=== PATIENT | female | born 1990 | race Hispanic/Latino ===

== ENCOUNTER 2017-12-06 21:41 | Emergency (ER) | payer OTHER ==
[2017-12-06 23:00] LABS: Urine Blood NEGATIVE (NEG); Urine Glucose NEGATIVE (NEG); Urine Protein NEGATIVE (NEG); Urine Specific Gravity 1.015 (1.005-1.030)
--- NOTE | 2017-12-06 23:03 | EDPHYS ---
Physician Documentation [facility] Name: Jovana Johnson Age: 27 yrs Sex: Female : 1990 Arrival Date: 12/06/2017 Time: 21:46 Bed 6 Private MD: Moshe Lopes E ED Physician Alvin Singh HPI: 12/06 22:57 This 27 yrs old Female presents to ER via Ambulatory with complaints of ashley Dizziness, Numbness Of Hand, Numbness Of Arm. 22:57 This 27 yrs old Female presents to ER via Ambulatory with complaints of ashley Dizziness, Numbness Of Hand, Numbness Of Arm. 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 - Social history:: Smoking status: Patient/guardian denies using tobacco. - Ebola Screening: : Patient negative for fever greater than or equal to 101.5 degrees Fahrenheit, and additional compatible Ebola Virus Disease symptoms Patient denies exposure to infectious person Patient denies travel to an Ebola-affected area in the 21 days before illness onset No symptoms or risks identified at this time. - Family history:: not pertinent. ROS: 22:59 Constitutional: Negative for fever, chills, and weight loss, Eyes: Negative for injury, ashley pain, redness, and discharge, ENT: Negative for injury, pain, and discharge, Neck: Negative for injury, pain, and swelling, Cardiovascular: Negative for chest pain, palpitations, and edema, Respiratory: Negative for shortness of breath, cough, wheezing, and pleuritic chest pain, Abdomen/GI: Negative for abdominal pain, nausea, vomiting, diarrhea, and constipation, Back: Negative for injury and pain, : Negative for injury, bleeding, discharge, and swelling, MS/Extremity: Negative for injury and deformity, Skin: Negative for injury, rash, and discoloration, Psych: Negative for depression, anxiety, suicide ideation, homicidal ideation, and hallucinations, Allergy/Immunology: Negative for hives, rash, and allergies, Endocrine: Negative for neck swelling, polydipsia, polyuria, polyphagia, and marked weight changes, Hematologic/Lymphatic: Negative for swollen nodes, abnormal bleeding, and unusual bruising. 22:59 Neuro: Positive for numbness, near syncope, tingling. Exam: 22:59 Constitutional: This is a well developed, well nourished patient who is awake, alert, ashley and in no acute distress. Head/Face: Normocephalic, atraumatic. Eyes: Pupils equal round and reactive to light, extra-ocular motions intact. Lids and lashes normal. Conjunctiva and sclera are non-icteric and not injected. Cornea within normal limits. Periorbital areas with no swelling, redness, or edema. ENT: Nares patent. No nasal discharge, no septal abnormalities noted. Tympanic membranes are normal and external auditory canals are clear. Oropharynx with no redness, swelling, or masses, exudates, or evidence of obstruction, uvula midline. Mucous membranes moist. Neck: Trachea midline, no thyromegaly or masses palpated, and no cervical lymphadenopathy. Supple, full range of motion without nuchal rigidity, or vertebral point tenderness. No Meningismus. Chest/axilla: Normal chest wall appearance and motion. Nontender with no deformity. No lesions are appreciated. Cardiovascular: Regular rate and rhythm with a normal S1 and S2. No gallops, murmurs, or rubs. Normal PMI, no JVD. No pulse deficits. Respiratory: Lungs have equal breath sounds bilaterally, clear to auscultation and percussion. No rales, rhonchi or wheezes noted. No increased work of breathing, no retractions or nasal flaring. Abdomen/GI: Soft, non-tender, with normal bowel sounds. No distension or tympany. No guarding or rebound. No evidence of tenderness throughout. Back: No spinal tenderness. No costovertebral tenderness. Full range of motion. Female : Normal external genitalia. Skin: Warm, dry with normal turgor. Normal color with no rashes, no lesions, and no evidence of cellulitis. MS/ Extremity: Pulses equal, no cyanosis. Neurovascular intact. Full, normal range of motion. Neuro: Awake and alert, GCS 15, oriented to person, place, time, and situation. Cranial nerves II-XII grossly intact. Motor strength 5/5 in all extremities. Sensory grossly intact. Cerebellar exam normal. Normal gait. Psych: Awake, alert, with orientation to person, place and time. Behavior, mood, and affect are within normal limits. Vital Signs: 21:54 BP 123 / 89; Pulse 90; Resp 20; Temp 97.8; Pulse Ox 100% on R/A; Weight 68.04 kg; aj Height 4 ft. 11 in. (149.86 cm); 23:07 BP 105 / 61 Supine; Pulse 77; ao 23:09 BP 116 / 79 Sitting; Pulse 78; ao 23:14 BP 121 / 79 Standing; Pulse 75; Resp 16; Pulse Ox 100% ; Pain 0/10; ao 21:54 Body Mass Index 30.30 (68.04 kg, 149.86 cm) aj MDM: 22:36 Patient medically screened. [facility] 22:59 Data reviewed: vital signs, nurses notes, lab test result(s), EKG. [facility] 12/06 22:32 Order name: Urine Dipstick--Ancillary (enter results); Complete Time: 23:01 12/06 22:32 Order name: Urine --Ancillary (enter results); Complete Time: 23:01 12/06 22:32 Order name: Urine Dipstick-Ancillary (obtain specimen); Complete Time: 22:32 cc 12/06 22:32 Order name: Urine Test (obtain specimen); Complete Time: 22:32 cc 12/06 23:01 Order name: Orthostatics; Complete Time: 23:16 [facility] 12/06 23:01 Order name: EKG; Complete Time: 23:01 [facility] 12/06 23:01 Order name: EKG - Nurse/Tech; Complete Time: 23:43 [facility] 12/06 23:01 Order name: PO challenge; Complete Time: 23:16 [facility] Administered Medications: No medications were administered Disposition: 12/06/17 23:02 Discharged to Home. Impression: Dizziness and giddiness. - Condition is Stable. - Discharge Instructions: Dizziness, Dizziness, [id number]. - Medication Reconciliation Form, Thank You Letter, Antibiotic Education, Prescription Opioid Use form. - Follow up: Moshe Lopes MD; When: 2 - 3 days; Reason: Recheck today's complaints, Continuance of care, Re-evaluation by your physician. - Problem is new. - Symptoms have improved. Signatures: Dispatcher [employer] EDJulia Schulz, RN RN Alvin Rios MD MD cha Christian, Chelsea cc Ortiz, Alex, RAFAEL RN ao Corrections: (The following items were deleted from the chart) 12/07 00:06 12/06 23:02 12/06/2017 23:02 Discharged to Home. Impression: Dizziness and giddiness. ao Condition is Stable. Forms are Medication Reconciliation Form, Thank You Letter, Antibiotic Education, Prescription Opioid Use. Follow up: Moshe Lopes; When: 2 - 3 days; Reason: Recheck today's complaints, Continuance of care, Re-evaluation by your physician. Problem is new. Symptoms have improved. ashley
--- NOTE | 2017-12-06 23:03 | ER ---
Nurse's Notes [facility] Name: Jovana Johnson Age: 27 yrs Sex: Female : 1990 Arrival Date: 12/06/2017 Time: 21:46 Bed 6 Private MD: Moshe Lopes E Diagnosis: Dizziness and giddiness Presentation: 12/06 21:53 Presenting complaint: Patient states: Numbness to bilateral hands, legs, and face with aj lightheadedness that started today while patient was texting. Patient ambulated with steady gait to triage. Speech is clear. No facial droop noted. Patient drover herself to ER. Transition of care: patient was not received from another setting of care. Onset of symptoms was December 06, 2017. Risk Assessment: Do you want to hurt yourself or someone else? Patient reports no desire to harm self or others. Care prior to arrival: None. 21:53 Method Of Arrival: Ambulatory aj 21:53 Acuity: KEVIN 3 aj 23:15 Initial Sepsis Screen: Does the patient meet any 2 criteria? No. Patient's initial ao sepsis screen is negative. Does the patient have a suspected source of infection? No. Patient's initial sepsis screen is negative. Triage Assessment: 21:54 General: Appears in no apparent distress. comfortable, Behavior is calm, cooperative, aj appropriate for age. Pain: Denies pain. Neuro: Level of Consciousness is awake, alert, obeys commands, Oriented to person, place, time, situation, Appropriate for age Numbness in face, right arm, left arm, right leg and left leg. Respiratory: Airway is patent Respiratory effort is even, unlabored, Respiratory pattern is regular, symmetrical. Derm: Skin is intact, is healthy with good turgor, Skin is pink, warm \T\ dry. normal. 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 - Social history:: Smoking status: Patient/guardian denies using tobacco. - Ebola Screening: : Patient negative for fever greater than or equal to 101.5 degrees Fahrenheit, and additional compatible Ebola Virus Disease symptoms Patient denies exposure to infectious person Patient denies travel to an Ebola-affected area in the 21 days before illness onset No symptoms or risks identified at this time. - Family history:: not pertinent. Screenin:14 Abuse screen: Denies threats or abuse. Denies injuries from another. Nutritional ao screening: No deficits noted. Tuberculosis screening: No symptoms or risk factors identified. Fall Risk None identified. Assessment: 22:31 General: Appears in no apparent distress. comfortable, Behavior is calm, cooperative, ao appropriate for age. Pain: Denies pain. Pain: Complains of pain in Report headache for the past few days but. Neuro: Level of Consciousness is awake, alert, obeys commands, Oriented to person, place, time, situation, Appropriate for age Moves all extremities. Speech is normal, Facial symmetry appears normal. Cardiovascular: Capillary refill < 3 seconds Patient's skin is warm and dry. Respiratory: Airway is patent Respiratory effort is even, unlabored, Respiratory pattern is regular, symmetrical. GI: Abdomen is non-distended, Bowel sounds present X 4 quads. : No signs and/or symptoms were reported regarding the genitourinary system. EENT: No signs and/or symptoms were reported regarding the EENT system. Derm: Skin is intact, Skin temperature is warm. Musculoskeletal: Amputation of Range of motion: intact in all extremities. 23:07 Reassessment: Patient appears in no apparent distress at this time. Patient and/or ao family updated on plan of care and expected duration. Pain level reassessed. Patient is alert, oriented x 3, equal unlabored respirations, skin warm/dry/pink. Patient get an EKG and then discharge if no problems. Vital Signs: 21:54 BP 123 / 89; Pulse 90; Resp 20; Temp 97.8; Pulse Ox 100% on R/A; Weight 68.04 kg; aj Height 4 ft. 11 in. (149.86 cm); 23:07 BP 105 / 61 Supine; Pulse 77; ao 23:09 BP 116 / 79 Sitting; Pulse 78; ao 23:14 BP 121 / 79 Standing; Pulse 75; Resp 16; Pulse Ox 100% ; Pain 0/10; ao 21:54 Body Mass Index 30.30 (68.04 kg, 149.86 cm) ED Course: 21:46 Patient arrived in ED. es 21:46 Moshe Lopes MD is Private Physician. es 21:54 Triage completed. aj 21:54 Arm band placed on left wrist. Patient placed in waiting room, Patient notified of wait aj time. 22:21 Adriel Lo, RN is Primary Nurse. ao 22:36 Alvin Singh MD is Attending Physician. ashley 23:02 Moshe Lopes MD is Referral Physician. [facility] 23:15 Patient has correct armband on for positive identification. Pulse ox on. NIBP on. ao 12/07 00:05 No provider procedures requiring assistance completed. Patient did not have IV access ao during this emergency room visit. Administered Medications: No medications were administered Outcome: 12/06 23:02 Discharge ordered by . [facility] 12/07 00:06 Discharged to home ambulatory. ao Condition: stable Discharge instructions given to patient, Instructed on discharge instructions, follow up and referral plans. Demonstrated understanding of instructions, follow-up care, medications. 00:06 Patient left the ED. ao Signatures: Julia Alves RN RN aj Anderson, Corey, MD MD cha Salyer, Edna es Ortiz, Alex RN RN ao
[2017-12-07 00:36] VITALS: TEMP 97.8; O2SAT 100
[2017-12-07 00:39] VITALS: BP 121/79
--- NOTE | 2017-12-07 06:46 | EKG ---
Test Date: 2017-12-06 Test Time: 23:28:58 [employer] Tutor: JASON MEASUREMENT RESULTS: Intervals: Rate: 67 ME: 184 QRSD: 80 QT: 396 QTc: 418 Blevins: P: 41 ME: 184 QRS: 69 T: 28 INTERPRETIVE STATEMENTS: Normal sinus rhythm Normal ECG No previous ECG available for comparison Electronically Signed On 12-07-17 06:46:06 CDT by Theodore Dey
== END 2017-12-07 00:06 | disposition home or self-care (01) ==
LOC: ER 21:41
DX: R42 Dizziness and giddiness (principal); R20.0 Anesthesia of skin
CPT/HCPCS: 81003; 81025; 93005; 99283

== ENCOUNTER 2018-10-21 15:43 | Emergency (ER) | payer OTHER ==
--- NOTE | 2018-10-21 17:08 | RAD REPORT ---
EXAM DESCRIPTION: RAD - Chest Single View - 10/21/2018 4:51 pm CLINICAL HISTORY: Chest pain;SOB Chest pain. COMPARISON: No comparisons FINDINGS: Portable technique limits examination quality. The lungs are grossly clear. The heart is normal in size. No displaced fractures. IMPRESSION: No acute intrathoracic process suspected.
--- NOTE | 2018-10-21 17:10 | EKG ---
Test Date: 2018-10-21 Test Time: 15:53:46 [employer]: MARIA DEL CARMEN MEASUREMENT RESULTS: Intervals: Rate: 91 GA: 166 QRSD: 82 QT: 354 QTc: 435 Dickens: P: 49 GA: 166 QRS: 71 T: 25 INTERPRETIVE STATEMENTS: Normal sinus rhythm Normal ECG Compared to ECG 12/06/2017 23:28:58 No significant changes Electronically Signed On 10-21-18 17:08:51 CDT by Theodore Dey
[2018-10-21 17:23] LABS: Absolute Lymphocytes (CBC) 2.3 K/uL (0.7-4.9); Absolute Monocytes 0.8 K/uL (0.1-1.3); Absolute Neutrophil 8.6 K/uL (1.8-8.0); Basophils % 0.6 % (0-1.3); Eosinophils % 1.1 % (0-4.4); Hematocrit 31.7 % (36.0-45.0); Lymphocytes % 19.2 % (15.3-44.8); RBC Red Blood Cell Count 4.56 M/uL (3.86-4.86)
[2018-10-21 17:30] LABS: Protime INR 0.95
[2018-10-21 17:39] LABS: ALT/SGPT 46 U/L (12-78); AST/SGOT 25 U/L (15-37); Albumin 3.8 g/dL (3.4-5.0); Alkaline Phosphatase 93 U/L (45-117); BUN Blood Urea Nitrogen 15 mg/dL (7-18); Bicarbonate 27 mmol/L (21-32); Bilirubin Direct < 0.1 mg/dL (0-0.2); Bilirubin Total 0.2 mg/dL (0.2-1.0); Glucose Level 99 mg/dL (74-106); NT PRO-BNP 24 pg/mL (<125); Potassium 3.7 mmol/L (3.5-5.1); Protein, Total 7.8 g/dL (6.4-8.2); Sodium Level 141 mmol/L (136-145); Troponin (Emerg Dept Use Only) < 0.02 ng/mL (0.0-0.045)
[2018-10-21 18:14] LABS: Anisocytosis 1+; Blood Morphology Comment NOTED (NOT SEEN); Platelet Estimate ADEQ; Polychromasia SLIGHT; Urine White Blood Cell Casts OK
[2018-10-21 18:15] LABS: Stomatocytes 1+
[2018-10-21 18:45] LABS: Urine Blood NEGATIVE (NEG); Urine Glucose NEGATIVE (NEG); Urine Protein NEGATIVE (NEG)
--- NOTE | 2018-10-21 20:36 | EDPHYS ---
Physician Documentation [facility] Name: Jovana Johnson Age: 28 yrs Sex: Female : 1990 Arrival Date: 10/21/2018 Time: 15:46 Bed 15 Private MD: Moshe Lopes E ED Physician Alvin Singh HPI: 10/21 19:00 This 28 yrs old Female presents to ER via Ambulatory with complaints of Chest pm1 Pain, Shortness Of Breath. 19:00 The patient or guardian reports chest pain that is located primarily in the mid-sternal pm1 area. The pain does not radiate. Associated signs and symptoms: Pertinent positives: shortness of breath, Pertinent negatives: cough, nausea, vomiting. The chest pain is described as aching. Duration: The patient or guardian reports multiple episodes, that have now resolved. Modifying factors: The symptoms are alleviated by rest, the symptoms are aggravated by emotionally stressful situations, walking, Father of her child about two weeks ago. Severity of pain: in the emergency department the pain has improved. The patient has not experienced similar symptoms in the past. The patient has not recently seen a physician. 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 - Ebola Screening: : Patient negative for fever greater than or equal to 101.5 degrees Fahrenheit, and additional compatible Ebola Virus Disease symptoms. ROS: 19:00 Constitutional: Negative for fever, chills, and weight loss, Eyes: Negative for injury, pm1 pain, redness, and discharge, ENT: Negative for injury, pain, and discharge, Neck: Negative for injury, pain, and swelling. 19:00 Abdomen/GI: Negative for abdominal pain, nausea, vomiting, diarrhea, and constipation, Back: Negative for injury and pain, : Negative for injury, bleeding, discharge, and swelling, MS/Extremity: Negative for injury and deformity, Skin: Negative for injury, rash, and discoloration, Neuro: Negative for headache, weakness, numbness, tingling, and seizure. 19:00 Cardiovascular: Positive for chest pain, Negative for edema, orthopnea, palpitations. 19:00 Respiratory: Positive for shortness of breath, Negative for cough, sputum production, wheezing. Exam: 19:00 Constitutional: This is a well developed, well nourished patient who is awake, alert, pm1 and in no acute distress. Head/Face: Normocephalic, atraumatic. Eyes: Pupils equal round and reactive to light, extra-ocular motions intact. Lids and lashes normal. Conjunctiva and sclera are non-icteric and not injected. Cornea within normal limits. Periorbital areas with no swelling, redness, or edema. ENT: Nares patent. No nasal discharge, no septal abnormalities noted. Tympanic membranes are normal and external auditory canals are clear. Oropharynx with no redness, swelling, or masses, exudates, or evidence of obstruction, uvula midline. Mucous membranes moist. Neck: Trachea midline, no thyromegaly or masses palpated, and no cervical lymphadenopathy. Supple, full range of motion without nuchal rigidity, or vertebral point tenderness. No Meningismus. Chest/axilla: Normal chest wall appearance and motion. Nontender with no deformity. No lesions are appreciated. Cardiovascular: Regular rate and rhythm with a normal S1 and S2. No gallops, murmurs, or rubs. Normal PMI, no JVD. No pulse deficits. Respiratory: Lungs have equal breath sounds bilaterally, clear to auscultation and percussion. No rales, rhonchi or wheezes noted. No increased work of breathing, no retractions or nasal flaring. Abdomen/GI: Soft, non-tender, with normal bowel sounds. No distension or tympany. No guarding or rebound. No evidence of tenderness throughout. Back: No spinal tenderness. No costovertebral tenderness. Full range of motion. Skin: Warm, dry with normal turgor. Normal color with no rashes, no lesions, and no evidence of cellulitis. MS/ Extremity: Pulses equal, no cyanosis. Neurovascular intact. Full, normal range of motion. 19:00 Neuro: Orientation: is normal, Motor: is normal, moves all fours. Vital Signs: 15:49 BP 129 / 87; Pulse 102; Resp 20; Temp 98.2; Pulse Ox 98% ; Weight 72.57 kg; Height 4 sv ft. 11 in. (149.86 cm); Pain 2/10; 17:00 BP 103 / 68; Pulse 84; Resp 15; Pulse Ox 99% on R/A; Pain 2/10; rb1 18:00 BP 95 / 69; Pulse 86; Resp 15; Pulse Ox 99% ; rb1 18:55 BP 109 / 82; Pulse 96; Resp 23; Pulse Ox 98% on R/A; rb1 19:25 BP 112 / 67; Pulse 80; Resp 16; Pulse Ox 100% on R/A; jb4 20:35 BP 106 / 78; Pulse 81; Resp 16; Pulse Ox 100% on R/A; jb4 15:49 Body Mass Index 32.32 (72.57 kg, 149.86 cm) sv MDM: 16:23 Patient medically screened. pm1 20:30 Data reviewed: vital signs. Data interpreted: Pulse oximetry: on room air is 100 %. pm1 Interpretation: normal. Counseling: I had a detailed discussion with the patient and/or guardian regarding: the historical points, exam findings, and any diagnostic results supporting the discharge/admit diagnosis, lab results, radiology results, the need for outpatient follow up, to return to the emergency department if symptoms worsen or persist or if there are any questions or concerns that arise at home. 10/21 16:29 Order name: Basic Metabolic Panel; Complete Time: 17:46 pm1 10/21 16:29 Order name: CBC with Diff; Complete Time: 20:09 pm1 10/21 16:29 Order name: LFT's; Complete Time: 17:46 pm1 10/21 16:29 Order name: Magnesium; Complete Time: 17:46 pm1 10/21 16:29 Order name: NT PRO-BNP; Complete Time: 17:46 pm1 10/21 16:29 Order name: PT-INR; Complete Time: 17:32 pm1 10/21 15:50 Order name: EKG; Complete Time: 15:50 sv 10/21 15:50 Order name: EKG - Nurse/Tech; Complete Time: 15:54 sv 10/21 16:29 Order name: Troponin (emerg Dept Use Only); Complete Time: 17:46 pm1 10/21 16:29 Order name: XRAY Chest (1 view); Complete Time: 17:32 pm1 10/21 16:29 Order name: D-Dimer; Complete Time: 17:32 pm1 10/21 17:28 Order name: CBC Smear Scan; Complete Time: 20:09 EDMS 10/21 17:28 Order name: Urine Dipstick--Ancillary (enter results); Complete Time: 20:09 bd 10/21 17:28 Order name: Urine --Ancillary (enter results); Complete Time: 20:09 bd 10/21 16:29 Order name: Cardiac monitoring; Complete Time: 17:13 pm1 10/21 16:29 Order name: IV Saline Lock; Complete Time: 17:13 pm1 10/21 16:29 Order name: Labs collected and sent; Complete Time: 17:13 pm1 10/21 16:29 Order name: O2 Per Protocol; Complete Time: 17:13 pm1 10/21 16:29 Order name: O2 Sat Monitoring; Complete Time: 17:13 pm1 10/21 16:29 Order name: Urine Dipstick-Ancillary (obtain specimen); Complete Time: 17:54 pm1 10/21 16:29 Order name: Urine Test (obtain specimen); Complete Time: 17:54 pm1 Administered Medications: No medications were administered Disposition: 10/22 06:40 Co-signature as Attending Physician, Alvin Singh MD I agree with the assessment and ashley plan of care. Disposition: 10/21/18 20:35 Discharged to Home. Impression: Chest pain, unspecified. - Condition is Stable. - Discharge Instructions: Nonspecific Chest Pain, Stress and Stress Management. - Medication Reconciliation Form, Thank You Letter, Antibiotic Education, Prescription Opioid Use form. - Follow up: Emergency Department; When: As needed; Reason: Worsening of condition. Follow up: Private Physician; When: 2 - 3 days; Reason: Recheck today's complaints, Continuance of care, Re-evaluation by your physician. - Problem is new. - Symptoms have improved. Signatures: Dispatcher [employer] Jovana Mcmahon RN RN sv Anderson, Corey, MD MD cha Barber, Rebecca, Mendoza Herrmann RN, NP FOREST ECONOMICS PROFESSOR pm1 Osbaldo Moses RN RN jb4 Corrections: (The following items were deleted from the chart) 10/21 20:51 20:35 10/21/2018 20:35 Discharged to Home. Impression: Chest pain, unspecified. jb4 Condition is Stable. Forms are Medication Reconciliation Form, Thank You Letter, Antibiotic Education, Prescription Opioid Use. Follow up: Emergency Department; When: As needed; Reason: Worsening of condition. Follow up: Private Physician; When: 2 - 3 days; Reason: Recheck today's complaints, Continuance of care, Re-evaluation by your physician. Problem is new. Symptoms have improved. pm1
--- NOTE | 2018-10-21 20:36 | ER ---
Nurse's Notes [facility] Name: Jovana Johnsno Age: 28 yrs Sex: Female : 1990 Arrival Date: 10/21/2018 Time: 15:46 Bed 15 Private MD: Moshe Lopes E Diagnosis: Chest pain, unspecified Presentation: 10/21 15:47 Presenting complaint: Patient states: left sided chest pain and SOB x 2 weeks. Reports sv that she was ambulating more today, is intermittent and mostly when she is active. Transition of care: patient was not received from another setting of care. Onset of symptoms was October 07, 2018. Care prior to arrival: None. 15:47 Method Of Arrival: Ambulatory sv 15:47 Acuity: KEVIN 3 sv 16:10 Risk Assessment: Do you want to hurt yourself or someone else? Patient reports no rb1 desire to harm self or others. Initial Sepsis Screen: Does the patient meet any 2 criteria? No. Patient's initial sepsis screen is negative. Does the patient have a suspected source of infection? No. Patient's initial sepsis screen is negative. Triage Assessment: 15:47 General: Appears in no apparent distress. comfortable, well groomed, well developed, sv Behavior is calm, cooperative, appropriate for age. Pain: Complains of pain in anterior aspect of left upper chest and left breast Pain currently is 2 out of 10 on a pain scale. Neuro: Level of Consciousness is awake, alert, obeys commands, Oriented to person, place, time, situation, Gait is steady. Respiratory: Reports shortness of breath on exertion Respiratory effort is even, unlabored, Respiratory pattern is regular, symmetrical. 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 - Ebola Screening: : Patient negative for fever greater than or equal to 101.5 degrees Fahrenheit, and additional compatible Ebola Virus Disease symptoms. Screenin:10 Abuse screen: Denies threats or abuse. Nutritional screening: No deficits noted. rb1 Tuberculosis screening: No symptoms or risk factors identified. Fall Risk None identified. Assessment: 16:10 General: Appears in no apparent distress. comfortable, Behavior is calm, cooperative, rb1 Denies fever. Pain: Complains of pain in chest Pain does not radiate. Pain currently is 10 out of 10 on a pain scale. Pain began a couple of weeks ago. Neuro: Level of Consciousness is awake, alert, obeys commands, Oriented to person, place, time, situation. Cardiovascular: Capillary refill < 3 seconds is brisk in bilateral fingers Rhythm is regular. Respiratory: Reports shortness of breath on exertion Airway is patent Respiratory effort is even, unlabored, Respiratory pattern is regular, symmetrical. GI: No signs and/or symptoms were reported involving the gastrointestinal system. : No signs and/or symptoms were reported regarding the genitourinary system. Derm: Skin is dry, Skin is normal, Skin temperature is warm. Musculoskeletal: Range of motion: intact in all extremities. 17:00 Reassessment: Patient appears in no apparent distress at this time. No changes from rb1 previously documented assessment. 18:00 Reassessment: Patient appears in no apparent distress at this time. Patient and/or rb1 family updated on plan of care and expected duration. Pain level reassessed. Patient is alert, oriented x 3, equal unlabored respirations, skin warm/dry/pink. 18:45 Reassessment: Pt. ambulated to the restroom. rb1 19:05 Reassessment: Patient appears in no apparent distress at this time. Patient and/or jb4 family updated on plan of care and expected duration. Pain level reassessed. Patient is alert, oriented x 3, equal unlabored respirations, skin warm/dry/pink. 19:20 Reassessment: Patient appears in no apparent distress at this time. Patient and/or jb4 family updated on plan of care and expected duration. Pain level reassessed. Patient is alert, oriented x 3, equal unlabored respirations, skin warm/dry/pink. Pt removed heart monitor due to itching, refuses to keep it on. 20:49 Reassessment: Patient appears in no apparent distress at this time. Patient and/or jb4 family updated on plan of care and expected duration. Pain level reassessed. Patient is alert, oriented x 3, equal unlabored respirations, skin warm/dry/pink. PT Left ED ambulatory with a steady gate. IV discontinued, bleeding controlled, bandaged applied. Vital Signs: 15:49 BP 129 / 87; Pulse 102; Resp 20; Temp 98.2; Pulse Ox 98% ; Weight 72.57 kg; Height 4 sv ft. 11 in. (149.86 cm); Pain 2/10; 17:00 BP 103 / 68; Pulse 84; Resp 15; Pulse Ox 99% on R/A; Pain 2/10; rb1 18:00 BP 95 / 69; Pulse 86; Resp 15; Pulse Ox 99% ; rb1 18:55 BP 109 / 82; Pulse 96; Resp 23; Pulse Ox 98% on R/A; rb1 19:25 BP 112 / 67; Pulse 80; Resp 16; Pulse Ox 100% on R/A; jb4 20:35 BP 106 / 78; Pulse 81; Resp 16; Pulse Ox 100% on R/A; jb4 15:49 Body Mass Index 32.32 (72.57 kg, 149.86 cm) sv ED Course: 15:46 Patient arrived in ED. mr 15:47 Moshe Lopes MD is Private Physician. mr 15:48 Triage completed. sv 15:49 Arm band placed on. sv 16:09 EKG done, by health information systems technician. reviewed by Alvin Singh MD. sm3 16:10 Patient has correct armband on for positive identification. Placed in gown. Bed in low rb1 position. Call light in reach. Side rails up X 1. monitor tech on. Pulse ox on. NIBP on. Warm blanket given. 16:10 Patient maintains SpO2 saturation greater than 95% on room air. rb1 16:22 Mendoza Rivas NP is PHCP. pm1 16:22 Alvin Singh MD is Attending Physician. pm1 16:51 XRAY Chest (1 view) In Process Unspecified. EDMS 16:57 Mouna Vu, RN is Primary Nurse. rb1 17:00 Inserted saline lock: 22 gauge in left antecubital area, using aseptic technique. Blood rb1 collected. 18:56 Report given to RAFAEL Childers. rb1 20:49 No provider procedures requiring assistance completed. IV discontinued, intact, jb4 bleeding controlled. Administered Medications: No medications were administered Output: 18:45 Urine: 1ml (Voided); Total: 1ml. rb1 Outcome: 20:35 Discharge ordered by . pm1 20:49 Discharged to home ambulatory. jb4 20:49 Condition: stable 20:49 Discharge instructions given to patient, Instructed on discharge instructions, follow up and referral plans. Demonstrated understanding of instructions, follow-up care. 20:51 Patient left the ED. jb4 Signatures: Dispatcher [employer] Jovana Mcmahon, RN Allie Hsu mr VuMouna, RN RN rb1 Mendoza Rivas, ULTRASONIC TESTER ULTRASONIC TESTER pm1 Osbaldo Moses RN RN jb4 Mary Jalloh 3
[2018-10-21 21:07] VITALS: TEMP 98.2
[2018-10-21 21:12] VITALS: BP 112/67; O2SAT 100
== END 2018-10-21 20:51 | disposition home or self-care (01) ==
LOC: ER 15:43
DX: R07.9 Chest pain, unspecified (principal)
CPT/HCPCS: 36415; 71045; 80048; 80076; 81003; 81025; 83735; 83880; 84484; 85025; 85379; 85610; 93005; 99285

== ENCOUNTER 2020-10-24 12:14 | Emergency (ER) | payer OTHER ==
--- OUTSIDE RECORDS SUMMARY | 2020-10-24 12:17 | XMS REPORT | Continuity of Care Document ---
:1990 Author Organization [facility] t Address [address] [place] [address] Care Team Providers Name Role Phone Lab, Juan A Pob I Attending Clinician Unavailable Problems This patient has no known problems. Allergies, Adverse Reactions, Alerts This patient has no known allergies or adverse reactions. Medications This patient has no known medications. Procedures This patient has no known procedures. Encounters Start End Encounter Admission Attending Care Care Encounter Source Date/Time Date/Time Type Type Clinicians Facility Department ID 2020-02-01 2020-02-01 Laboratory Lab, [facility] [id number] 10:34:05 10:54:05 Only Fam Pob I [facility] [id number] [place] [id number] [place] [id number] [address] Results This patient has no known results.
[2020-10-24 17:27] LABS: Absolute Lymphocytes (CBC) 1.5 K/uL (0.7-4.9); Basophils % 0.4 % (0-1.3); Hematocrit 41.2 % (36.0-45.0); Lymphocytes % 11.8 % (15.3-44.8); RBC Red Blood Cell Count 4.98 M/uL (3.86-4.86)
[2020-10-24 17:35] LABS: Protime INR 1.08
[2020-10-24 17:39] LABS: Urine Blood 1+ (Negative); Urine Glucose Negative (Negative); Urine Protein Negative (Negative); Urine Specific Gravity 1.025 (1.005-1.030); Urine pH 5.5 (5.0-7.0)
[2020-10-24 17:45] LABS: ALT/SGPT 45 U/L (12-78); AST/SGOT 16 U/L (15-37); Albumin 4.3 g/dL (3.4-5.0); Alkaline Phosphatase 129 U/L (45-117); BUN Blood Urea Nitrogen 13 mg/dL (7-18); Bicarbonate 23 mmol/L (21-32); Bilirubin Direct 0.1 mg/dL (0-0.2); Bilirubin Total 0.4 mg/dL (0.2-1.0); Glucose Level 153 mg/dL (74-106); Magnesium 2.1 mg/dL (1.8-2.4); NT PRO-BNP 9 pg/mL (<125); Potassium 3.6 mmol/L (3.5-5.1); Protein, Total 8.4 g/dL (6.4-8.2); Sodium Level 138 mmol/L (136-145); Troponin (Emerg Dept Use Only) < 0.02 ng/mL (0.0-0.045)
[2020-10-24 18:05] LABS: Urine Specific Gravity/Preg 1.025 (1.005-1.030)
--- NOTE | 2020-10-24 18:38 | RAD REPORT ---
EXAM DESCRIPTION: April Single View10/24/2020 6:29 pm CLINICAL HISTORY: Chest pain COMPARISON: 2018 FINDINGS: The lungs appear clear of acute infiltrate. The heart is normal size IMPRESSION: No acute abnormalities displayed
--- NOTE | 2020-10-24 19:09 | ER ---
Nurse's Notes [facility] Name: Jovana Johnson Age: 30 yrs Sex: Female : 1990 Arrival Date: 10/24/2020 Time: 12:19 Bed 24 Private MD: Diagnosis: Chest pain, unspecified;Headache Presentation: 10/24 12:22 Chief complaint: Patient states: Mid chest sharp pain off/on since . SOB and L ll1 arm numbness for 2 days. Sent in for eval by Dr. Lopes. On steroids for hives. Coronavirus screen: Client denies travel out of the [place] in the last 14 days. difficulty breathing, shortness of breath, Client presents with at least one sign or symptom that may indicate coronavirus-19. Standard/surgical mask placed on the client. Ebola Screen: Patient denies travel to an Ebola-affected area in the 21 days before illness onset. Initial Sepsis Screen: Does the patient meet any 2 criteria? HR > 90 bpm. No. Patient's initial sepsis screen is negative. Does the patient have a suspected source of infection? No. Patient's initial sepsis screen is negative. Risk Assessment: Do you want to hurt yourself or someone else? Patient reports no desire to harm self or others. Onset of symptoms was October 20, 2020. 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 - Social history:: Smoking status: Patient denies any tobacco usage or history of. Screenin:10 Abuse screen: Denies threats or abuse. Denies injuries from another. Nutritional ca1 screening: No deficits noted. Tuberculosis screening: No symptoms or risk factors identified. Fall Risk IV access (20 points). Assessment: 17:10 General: Appears in no apparent distress. comfortable, Behavior is calm, cooperative, ca1 appropriate for age. Pain: Complains of pain in chest Pain radiates to left arm Pain currently is 0 out of 10 on a pain scale. at worst was 10 out of 10 on a pain scale. Quality of pain is described as pressure, sharp, numb, Pain began a week ago Is intermittent. Neuro: Level of Consciousness is awake, alert, obeys commands, Oriented to person, place, time, situation. Neuro: Reports headache. Cardiovascular: Heart tones S1 S2 present Capillary refill < 3 seconds Patient's skin is warm and dry. Rhythm is sinus tachycardia. Respiratory: Airway is patent Respiratory effort is even, unlabored, Respiratory pattern is regular, symmetrical, Breath sounds are clear bilaterally. GI: Abdomen is round non-distended, Bowel sounds present X 4 quads. Abd is soft and non tender X 4 quads. Reports nausea. : No signs and/or symptoms were reported regarding the genitourinary system. EENT: No signs and/or symptoms were reported regarding the EENT system. Derm: Skin is intact, is healthy with good turgor, Skin is pink, warm \T\ dry. Musculoskeletal: Circulation, motion, and sensation intact. Capillary refill < 3 seconds. 18:14 Reassessment: Patient appears in no apparent distress at this time. Patient and/or ca1 family updated on plan of care and expected duration. Pain level reassessed. Patient is alert, oriented x 3, equal unlabored respirations, skin warm/dry/pink. 19:04 Reassessment: Patient appears in no apparent distress at this time. Patient and/or ca1 family updated on plan of care and expected duration. Pain level reassessed. Patient is alert, oriented x 3, equal unlabored respirations, skin warm/dry/pink. 19:30 Reassessment: Patient is alert, oriented x 3, equal unlabored respirations, skin bb warm/dry/pink. pt is crying states she has had a migraine all day the pain is 10/10 Mendoza Rivas POLICE SERGEANT notified new orders received, pt medicated see MAR pt awaiting CT scan. IV site intact, patent, fluids infusing, no erythema or edema noted. 20:51 Reassessment: Patient is alert, oriented x 3, equal unlabored respirations, skin bb warm/dry/pink. pt states she is feeling better now pt verbalized understanding of and agrees to plan of care discharge instructions given pt ambulated with steady gait to exit. Vital Signs: 12:22 BP 141 / 86; Pulse 122; Resp 17; Temp 99.0; Pulse Ox 98% ; Weight 75.75 kg; Height 4 ll1 ft. 11 in. (149.86 cm); Pain 3/10; 17:27 BP 126 / 89; Pulse 102; Resp 19 S; Pulse Ox 97% on R/A; ca1 18:14 BP 121 / 81; Pulse 108; Resp 20 S; Pulse Ox 100% on R/A; ca1 19:04 BP 123 / 87; Pulse 105; Resp 20 S; Pulse Ox 97% on R/A; ca1 19:54 BP 123 / 87; Pulse 97; Resp 20 S; Pulse Ox 100% on R/A; Pain 10/10; bb 20:52 BP 130 / 72; Pulse 101; Resp 16 S; Pulse Ox 100% on R/A; Pain 2/10; bb 12:22 Body Mass Index 33.73 (75.75 kg, 149.86 cm) ll1 ED Course: 12:19 Patient arrived in ED. mr 12:24 Triage completed. ll1 12:25 Arm band placed on. EKG completed in triage. Results shown to MD. ll1 12:36 EKG done, by ED staff, reviewed by Florian Harp MD. mh5 12:37 Patient has correct armband on for positive identification. mh5 16:58 Justyna Stewart, RAFAEL is Primary Nurse. ca1 16:59 Mendoza Rivas NP is PHCP. pm1 16:59 Florian Harp MD is Attending Physician. pm1 17:10 threat monitoring analyst on. Pulse ox on. NIBP on. Warm blanket given. ca1 17:10 No provider procedures requiring assistance completed. Initial lab(s) drawn, by tn, ca1 sent to lab. Inserted saline lock: 20 gauge in right antecubital area, using aseptic technique. Blood collected. Patient maintains SpO2 saturation greater than 95% on room air. 17:38 Urine collected: clean catch specimen, clear, mario alberto colored. jp3 18:29 XRAY Chest (1 view) In Process Unspecified. EDMS 21:07 IV discontinued, intact, bleeding controlled, No redness/swelling at site. Pressure bb dressing applied. Administered Medications: 19:16 Drug: NS 0.9% 1000 ml Route: IV; Rate: 1 bolus; Site: right antecubital; ca1 20:54 Follow up: IV Status: Completed infusion; IV Intake: 900ml bb 19:20 Drug: Tylenol 1000 mg Route: PO; ca1 20:35 Follow up: Response: No adverse reaction bb 19:54 Drug: Reglan (metoCLOPramide) 10 mg Route: IVP; Site: right antecubital; bb 20:53 Follow up: Response: No adverse reaction bb 20:54 Follow up: Response: No adverse reaction bb 19:54 Drug: TORadol (ketorolac) 30 mg Route: IVP; Site: right antecubital; bb 20:54 Follow up: Response: No adverse reaction bb 19:55 Drug: Benadryl (diphenhydrAMINE) 25 mg Route: IVP; Site: right antecubital; bb 20:54 Follow up: Response: No adverse reaction bb Point of Care Testing: Urine : 17:38 hCG Reading: Negative; Control Reading: Positive; jp3 Intake: 20:54 IV: 900ml; Total: 900ml. bb Outcome: 19:08 Discharge ordered by MD. pm1 20:37 Discharge ordered by MD. pm1 21:07 Discharged to home ambulatory. bb 21:07 Condition: stable 21:07 Discharge instructions given to patient, Instructed on discharge instructions, follow up and referral plans. no driving heavy equipment, medication usage, Demonstrated understanding of instructions, follow-up care, medications, Prescriptions given X 1. 21:08 Patient left the ED. bb Signatures: Dispatcher [employer] ARVIND QuirosAllie BayronFiona RN RN bb Mendoza Rivas, SHAY POLICE SERGEANT pm1 Umu Josue Jacob 3 Justyna Stewart RN RN ca1 Ingrid Armas RN RN ll1 Corrections: (The following items were deleted from the chart) 18:15 18:14 BP 117 / 65; Pulse 92bpm; Resp 26bpm; Spontaneous; Pulse Ox 100% RA; ca1 ca1 18:16 18:14 Pulse 108bpm; Resp 20bpm; Spontaneous; Pulse Ox 100% RA; ca1 ca1
--- NOTE | 2020-10-24 19:09 | EDPHYS ---
Physician Documentation [facility] Name: Jovana Johnson Age: 30 yrs Sex: Female : 1990 Arrival Date: 10/24/2020 Time: 12:19 Bed 24 Private MD: ED Physician Florian Harp HPI: 10/24 17:26 This 30 yrs old Female presents to ER via Ambulatory with complaints of Chest pm1 Pain, Numbness Of Arm. 17:26 The patient or guardian reports chest pain that is located primarily in the mid-sternal pm1 area. The pain radiates to the left arm. Associated signs and symptoms: Pertinent positives: shortness of breath, numbness left arm. The chest pain is described as aching. Modifying factors: The symptoms are alleviated by nothing. the symptoms are aggravated by emotionally stressful situations. Severity of pain: in the emergency department the pain is unchanged. The patient has experienced a previous episode, approximately 2 years ago, with of her child's father, October 2018. The patient has been recently seen by a physician: the patient's primary care provider, with similar presenting complaints, and was sent to the [facility] Emergency Department for further evaluation. SHANK TAPER: 18:14 LMP N/A - Depo-provera ca1 Historical: - Allergies: 12:25 No Known Allergies; ll1 - PMHx: 12:25 ADD/ADHD; ll1 - PSHx: 12:25 None; ll1 - Immunization history:: Flu vaccine is up to date. - Social history:: Smoking status: Patient denies any tobacco usage or history of. ROS: 17:26 Constitutional: Negative for fever, chills, and weight loss. pm1 17:26 Abdomen/GI: Negative for abdominal pain, nausea, vomiting, diarrhea, and constipation, Back: Negative for injury and pain, MS/Extremity: Negative for injury and deformity, Skin: Negative for injury, rash, and discoloration, Neuro: Negative for headache, weakness, numbness, tingling, and seizure. 17:26 Cardiovascular: Positive for chest pain, Negative for edema, palpitations. 17:26 Respiratory: Positive for shortness of breath, Negative for cough, sputum production, wheezing. Exam: 17:26 Constitutional: This is a well developed, well nourished patient who is awake, alert, pm1 and in no acute distress. Head/Face: Normocephalic, atraumatic. Chest/axilla: Normal chest wall appearance and motion. Nontender with no deformity. No lesions are appreciated. 17:26 Respiratory: Lungs have equal breath sounds bilaterally, clear to auscultation and percussion. No rales, rhonchi or wheezes noted. No increased work of breathing, no retractions or nasal flaring. Abdomen/GI: Soft, non-tender, with normal bowel sounds. No distension or tympany. No guarding or rebound. No evidence of tenderness throughout. Back: No spinal tenderness. No costovertebral tenderness. Full range of motion. Skin: Warm, dry with normal turgor. Normal color with no rashes, no lesions, and no evidence of cellulitis. MS/ Extremity: Pulses equal, no cyanosis. Neurovascular intact. Full, normal range of motion. 17:26 Cardiovascular: Rate: tachycardic, Rhythm: regular, Pulses: no pulse deficits are appreciated. 17:26 Neuro: Exam negative for Orientation: is normal, Mentation: is normal, Motor: is normal, moves all fours. Vital Signs: 12:22 BP 141 / 86; Pulse 122; Resp 17; Temp 99.0; Pulse Ox 98% ; Weight 75.75 kg; Height 4 ll1 ft. 11 in. (149.86 cm); Pain 3/10; 17:27 BP 126 / 89; Pulse 102; Resp 19 S; Pulse Ox 97% on R/A; ca1 18:14 BP 121 / 81; Pulse 108; Resp 20 S; Pulse Ox 100% on R/A; ca1 19:04 BP 123 / 87; Pulse 105; Resp 20 S; Pulse Ox 97% on R/A; ca1 19:54 BP 123 / 87; Pulse 97; Resp 20 S; Pulse Ox 100% on R/A; Pain 10/10; bb 20:52 BP 130 / 72; Pulse 101; Resp 16 S; Pulse Ox 100% on R/A; Pain 2/10; bb 12:22 Body Mass Index 33.73 (75.75 kg, 149.86 cm) ll1 MDM: 17:05 Patient medically screened. pm1 19:08 Data reviewed: vital signs. Data interpreted: Pulse oximetry: on room air is 97 %. pm1 Interpretation: normal. Counseling: I had a detailed discussion with the patient and/or guardian regarding: the historical points, exam findings, and any diagnostic results supporting the discharge/admit diagnosis, lab results, radiology results, the need for outpatient follow up, to return to the emergency department if symptoms worsen or persist or if there are any questions or concerns that arise at home. 20:36 Counseling: I had a detailed discussion with the patient and/or guardian regarding: the pm1 historical points, exam findings, and any diagnostic results supporting the discharge/admit diagnosis, lab results, the need for outpatient follow up, to return to the emergency department if symptoms worsen or persist or if there are any questions or concerns that arise at home. 10/24 17:00 Order name: Basic Metabolic Panel; Complete Time: 19:05 pm1 10/24 17:00 Order name: CBC with Diff; Complete Time: 19:05 pm1 10/24 17:00 Order name: LFT's; Complete Time: 19:05 pm1 10/24 17:00 Order name: Magnesium; Complete Time: 19:05 pm1 10/24 17:00 Order name: NT PRO-BNP; Complete Time: 19:05 pm1 10/24 17:00 Order name: PT-INR; Complete Time: 19:05 pm1 10/24 17:00 Order name: Troponin (emerg Dept Use Only); Complete Time: 19:05 pm1 10/24 17:00 Order name: XRAY Chest (1 view); Complete Time: 19:05 pm1 10/24 17:39 Order name: Urine Dipstick-Ancillary EDMO 10/24 17:39 Order name: Urine Dipstick-Ancillary; Complete Time: 17:39 EDMO 10/24 17:43 Order name: Urine --Ancillary (enter results); Complete Time: 19:05 bd 10/24 19:10 Order name: D-Dimer; Complete Time: 20:36 ca1 10/24 12:27 Order name: EKG; Complete Time: 12:27 ll1 10/24 17:00 Order name: Cardiac monitoring; Complete Time: 17:26 pm1 10/24 17:00 Order name: EKG - Nurse/Tech; Complete Time: 17:07 pm1 10/24 17:00 Order name: IV Saline Lock; Complete Time: 17:26 pm1 10/24 17:00 Order name: Labs collected and sent; Complete Time: 17:26 pm1 10/24 17:00 Order name: O2 Per Protocol; Complete Time: 17: pm1 10/24 17:00 Order name: O2 Sat Monitoring; Complete Time: 17:26 pm1 10/24 17:00 Order name: Urine Dipstick-Ancillary (obtain specimen); Complete Time: 17:38 pm1 10/24 17:00 Order name: Urine Test (obtain specimen); Complete Time: 17:38 pm1 Administered Medications: 19:16 Drug: NS 0.9% 1000 ml Route: IV; Rate: 1 bolus; Site: right antecubital; ca1 20:54 Follow up: IV Status: Completed infusion; IV Intake: 900ml bb 19:20 Drug: Tylenol 1000 mg Route: PO; ca1 20:35 Follow up: Response: No adverse reaction bb 19:54 Drug: Reglan (metoCLOPramide) 10 mg Route: IVP; Site: right antecubital; bb 20:53 Follow up: Response: No adverse reaction bb 20:54 Follow up: Response: No adverse reaction bb 19:54 Drug: TORadol (ketorolac) 30 mg Route: IVP; Site: right antecubital; bb 20:54 Follow up: Response: No adverse reaction bb 19:55 Drug: Benadryl (diphenhydrAMINE) 25 mg Route: IVP; Site: right antecubital; bb 20:54 Follow up: Response: No adverse reaction bb Point of Care Testing: Urine : 17:38 hCG Reading: Negative; Control Reading: Positive; jp3 Disposition: 10/24/20 20:37 Discharged to Home. Impression: Chest pain, unspecified, Headache. - Condition is Stable. - Discharge Instructions: Nonspecific Chest Pain, General Headache Without Cause. - Prescriptions for Fiorinal 50- 325-40 mg Oral Capsule - take 1 capsule by ORAL route every 4 hours As needed - not to exceed 6 capsules per day; 20 capsule. - Medication Reconciliation Form, Thank You Letter, Antibiotic Education, Prescription Opioid Use form. - Follow up: Emergency Department; When: As needed; Reason: Worsening of condition. Follow up: Private Physician; When: 2 - 3 days; Reason: Recheck today's complaints, Continuance of care, Re-evaluation by your physician. - Problem is new. - Symptoms have improved. Addendum: 10/26/2020 10:06 Co-signature as Attending Physician, Florian Harp MD I agree with the assessment and t w4 plan of care. Signatures: Dispatcher [employer] EDMS Fiona Verma RN RN bb Evelyn, Mendoza, DIE CAST TECHNICIAN DIE CAST TECHNICIAN pm1 Florian Harp MD MD tw4 Justyna Stewart RN RN ca1 Ingrid Armas RN RN ll1 Corrections: (The following items were deleted from the chart) 10/24 19:09 19:08 10/24/2020 19:08 Discharged to Home. Impression: Chest pain, unspecified. pm1 Condition is Stable. Forms are Medication Reconciliation Form, Thank You Letter, Antibiotic Education, Prescription Opioid Use. Follow up: Emergency Department; When: As needed; Reason: Worsening of condition. Follow up: Private Physician; When: 2 - 3 days; Reason: Recheck today's complaints, Continuance of care, Re-evaluation by your physician. Problem is new. Symptoms have improved. pm1 20:39 20:37 10/24/2020 20:37 Discharged to Home. Impression: Chest pain, unspecified. pm1 Condition is Stable. Forms are Medication Reconciliation Form, Thank You Letter, Antibiotic Education, Prescription Opioid Use. Follow up: Emergency Department; When: As needed; Reason: Worsening of condition. Follow up: Private Physician; When: 2 - 3 days; Reason: Recheck today's complaints, Continuance of care, Re-evaluation by your physician. Problem is new. Symptoms have improved. pm1 21:08 20:39 10/24/2020 20:37 Discharged to Home. Impression: Chest pain, unspecified; bb Headache. Condition is Stable. Discharge Instructions: Nonspecific Chest Pain, General Headache Without Cause. Forms are Medication Reconciliation Form, Thank You Letter, Antibiotic Education, Prescription Opioid Use. Follow up: Emergency Department; When: As needed; Reason: Worsening of condition. Follow up: Private Physician; When: 2 - 3 days; Reason: Recheck today's complaints, Continuance of care, Re-evaluation by your physician. Problem is new. Symptoms have improved. pm1
[2020-10-24] MEDS ORDERED: NA CHLORIDE 0.9% 1,000 ML ONE (19:31)
[2020-10-24] MEDS ORDERED: ACETAMINOPHEN 500 MG TAB ONE (19:38)
[2020-10-24] MEDS ORDERED: METOCLOPRAMIDE 10 MG/2mL INJ ONE (20:02)
[2020-10-24] MEDS ORDERED: DIPHENHYDRAMINE 50 MG/ML VIAL ONE (20:02)
[2020-10-24] MEDS ORDERED: KETOROLAC 30 MG/ML INJ ONE (20:03)
[2020-10-24 21:21] VITALS: TEMP 99
[2020-10-24 21:27] VITALS: O2SAT 100
[2020-10-24 21:28] VITALS: BP 130/72
--- NOTE | 2020-10-25 12:16 | EKG ---
Test Date: 2020-10-24 Test Time: 12:28:56 Cathodic Protection Technician: JARED MEASUREMENT RESULTS: Intervals: Rate: 114 NM: 138 QRSD: 74 QT: 318 QTc: 438 [place]: P: 51 NM: 138 QRS: 82 T: 24 INTERPRETIVE STATEMENTS: Sinus tachycardia Otherwise normal ECG Compared to ECG 10/21/2018 15:53:46 Sinus rhythm no longer present Electronically Signed On 10-25-20 12:13:34 CDT by Clemente Delacruz
== END 2020-10-24 21:08 | disposition home or self-care (01) ==
LOC: ER 12:14
DX: R07.9 Chest pain, unspecified (principal); R51.9 Headache, unspecified
CPT/HCPCS: 85025; 80048; 36415; 83735; 81025; 85610; 85379; 80076; 81003; 84484; 83880; 71045; J2765; J1200; J7030; 93005; 96361; 96374; 96375; 99285